=== PATIENT | female | born 1955 | race Caucasian/White ===

== ENCOUNTER 2017-04-15 10:26 | Emergency (ER) ==
[2017-04-15 10:32] VITALS: BP 167/91; TEMP 97.5; BMI 28.5
--- NOTE | 2017-04-15 10:48 | ED.PDOC ---
General ED Provider: Dr. ALEX MEDINA Chief Complaint: Foot Pain/Injury Stated Complaint: Stepped on a piece of broken glass approximately an hour ago. Pulled it out but thinks a piece remains in it. tried to dig it out with tweezers without success. Painful if she walks on it but otherwise pain- free Time Seen by Physician: 10:44 Mode of Arrival: Walk-In Information Source: Patient Exam Limitations: Physical impairment Primary Care Provider: JUDY MACK Nursing and Triage Documentation Reviewed and Agree: Yes Skin Complaint Exam - Skin/Soft Tissue Complaint/Exam Onset/Duration: 1 hour Symptoms Are: Still present Timing: Constant Initial Severity: Mild Current Severity: Mild Location: sole of foot proximal to big toe MTP joint Character: Reports: Painful (with weight-bearing on the site) Aggravating: Reports: Touch Alleviating: Reports: None Associated Signs and Symptoms: Reports: Tenderness Related Surgical History: Reports: None Recent Exposure to Others w/Similar Symptoms: No Skin Findings: Present: Other (puncture site palpable with questionable FB palpable under skin) Differential Diagnoses: Foreign Body, Other (puncture wound) Review of Systems - Review Of Systems Constitutional: Reports: No symptoms Musculoskeletal: Reports: No symptoms Skin: Reports: Other (tender puncture wound on sole of left foot with questionably palpable foreign body underneath skin) Neurological: Reports: No symptoms All Other Systems: Reviewed and Negative Past Medical History - Past Medical History Previously Healthy: Yes Endocrine: Reports: None Cardiovascular: Reports: None Respiratory: Reports: None Hematological: Reports: None Gastrointestinal: Reports: None Genitourinary: Reports: None Neuro/Psych: Reports: None Musculoskeletal: Reports: None Cancer: Reports: None Last Menstrual Period: 07/16/2001 - Surgical History General Surgical History: Reports: None - Family History Family History: Reports: Unknown - Social History Smoking Status: Never smoker Hx Substance Use: No Alcohol Screening: None Lives: With family - Immunizations Tetanus Shot up to Date: No (unknown) Influenza Vaccine within 12 Months: No Pneumococcal Vaccine up to Date: No Physical Exam - Physical Exam Appearance: Well-appearing, No pain distress, Well-nourished Musculoskeletal: Normal strength, ROM intact, No edema, No calf tenderness Skin: Warm (tender palpable puncture wound on sole of left foot proximal to first MTP joint. No neueo/vasc compromise. No muscle or tendon involvement.), Dry, Normal color Neurological: Sensation intact, Motor intact, Reflexes intact, Cranial nerves intact, Alert, Oriented Psychiatric: Affect appropriate, Mood appropriate Interpretation - Radiology Interpretation Radiology Interpretation By: ED Physician Radiology Results: Negative Exam Interpreted: Other Xray Comments: left foot soft tissue x-ray: no FB seen Critical Care Note - Critical Care Note Total Time (mins): 0 Course - Course Orders, Labs, Meds: Orders Category Date Time Status Diphth,Pertuss(Acell),Tet Vac [Boostrix] MEDS 04/15/17 10:52 Once 0.5 ml IM .ONCE ONE FOOT, LEFT 3 VIEWS Stat RADS 04/15/17 10:48 Ordered Medications Discontinued Medications Generic Name Dose Route Start Last Admin Trade Name Freq PRN Reason Stop Dose Admin Diphtheria/Pertussis/Tetanus Vacc 0.5 ml 04/15/17 10:52 Boostrix IM 04/15/17 10:53 .ONCE ONE Vital Signs: Temp Pulse Resp BP Pulse Ox 04/15/17 10:26 97.5 F L 56 L 16 167/91 H 98 Departure - Departure Time of Disposition: 11:05 Disposition: HOME SELF-CARE Discharge Problem: Puncture wound of left foot Instructions: Puncture Wound (ED) Condition: Good Pt referred to PMD for follow-up: No (if no better in 3 days, see doctor) Allergies/Adverse Reactions: Allergies meperidine [From Demerol] Adverse Reaction (Verified 04/15/17 10:35) morphine Adverse Reaction (Verified 04/15/17 10:35) promethazine [From Phenergan] Adverse Reaction (Verified 04/15/17 10:35) Home Medications: Ambulatory Orders Aspirin 81 mg PO DAILY 04/15/17 Cephalexin [Keflex] 500 mg PO BID #10 capsule 04/15/17 Multivitamin [Multi-Vitamin Daily] 1 tab PO DAILY 04/15/17 [place]-3 Fatty Acids/Fish Oil [Fish Oil 1,000 mg Capsule] 1,000 mg PO DAILY 04/15 Disposition Discussed With: Patient, Family
[2017-04-15] MEDS ORDERED: BOOSTRIX IM ONE (10:52)
--- NOTE | 2017-04-15 12:17 | DI ---
EXAM: Left foot, three views HISTORY: Trauma COMPARISON: None. FINDINGS: The alignment is normal. Joint spaces appear normal. No fracture is identified. Mild so ft tissue swelling or prominence of plantar soft tissues. Large calcaneal spur is seen. IMPRESSION: No fracture or dislocation is identified. There is a tiny 2 mm opacity seen in the distal plantar soft tissues on lateral image that may repres ent artifact versus small foreign body.
== END 2017-04-15 11:16 | disposition home or self-care (01) ==
LOC: ED 10:26
DX: S91.332A Puncture wound without foreign body, left foot, initial encounter (principal); W25.XXXA Contact with sharp glass, initial encounter
CPT/HCPCS: 90471; 90715; 99282

== ENCOUNTER 2017-05-30 08:15 | Outpatient (RCR) ==
--- NOTE | 2017-05-16 09:54 | RS.OPPTDN ---
Subjective Date of Note: 05/16/17 Visit #: 8 Date of Evaluation: 04/18/17 Payer Source: Insurance Treatment Diagnosis: back pain, radiculopathy right LE, right foot pain Current Subjective/complaints:: Patient says her back pain/hips and foot pain remain unchanged since yesterday. She says that back pain is chronic, but foot pain is an annoying 3/10 pain that is at the heel and lateral portion of the foot. She says that first few steps are very difficult, then after she is up on it a few mins, her pain subsides. However, if she walks more than 1 mile, pain returns. Pain Assessment - Pain Description Pain Location: low back and right leg, R heel and lateral arch Current Pain Intensity: mild in right hip and right foot - Treatment Modality: Ultrasound Parameters/Method Applied: continuous @ 1.5 w/cm2 x 12 mins to the R heel and lateral arch into just distal to the lateral malleoli. Patient Position: Supine - Heat/Cryotherapy Treatment: Hot Pack (10 mins to the foot, also to the low back and hips in supine while heat on foot and u/s ) Interventions - Exercise/Activities/Manual Therapy Exercises/Activities: [id number] Passive stretching of the right gastroc, soleus, and get toe flexors. Isometric right ankle df, multiple reps. Assisted stretching of the right HS, piriformis, figure 4, and ITB stretch. Isometric hip add and isometric hip flexion, lower trunk rotation stretch x 10. Bridging x 10. Ankle isometrics all dir 2x10. Manual Therapy: NA HOME EXERCISE PROGRAM: HS stretch and piriformis stretch, and plantar fascia stretch. Side-lying ITB stretch. Bridging. Isometric right ankle df. - Charges Total Direct Minutes: 34 Total Treatment Time: 49 Procedures billed for this date of service:: hp, u/s, ex Assessment: Patient experiencing mild pain that is intermittent to the R heel and lateral aspect of the foot as well as history of chronic pain to the low back and hips. She is active with [employer] locally and aerobics to improve her pain. Improved flexibility is noted however with HS and R heel cords. Patient Education: Body/Joint mechanics, Home Exercise Program Patient demonstrates compliance with HEP?: Yes Short Term Goals Goal #1: Right SLR to 50 degrees. Goal to be met by: 05/03/17 Progress towards Goal:: Progressing Goal #2: Right lateral thigh symptoms localized. Goal to be met by: 05/03/17 Progress towards Goal:: Progressing Goal #3: Pt independent in HEP. Goal to be met by: 05/03/17 Progress towards Goal:: Met Rug Inspector Goals Goal #1: Pt knows HEP and to continue ex's to maintain functional level at D/C. Goal to be met by: 06/08/17 Progress towards goal: Progressing Goal #2: Score on Oswestry LBP scale improved to 18. Goal to be met by: 06/08/17 Goal #3: Pt to tolerate prolonged standingwalking without right thigh or foot pain. Goal to be met by: 06/08/17 Progress towards goal: Progressing Goal #4: Pt to ambulate without gait deviation on the right LE. Goal to be met by: 06/08/17 Progress towards goal: Progressing Plan PLAN OF CARE EXPIRES ON:: 06/08/17 ORDER # VISITS AND/OR THROUGH DATE: 06/08/17 PLAN: Progress Exercises
--- NOTE | 2017-05-18 10:48 | RS.OPPTDN ---
Subjective Date of Note: 05/18/17 Visit #: 9 Date of Evaluation: 04/18/17 Payer Source: Insurance Treatment Diagnosis: back pain, radiculopathy right LE, right foot pain Current Subjective/complaints:: Patient says that applying u/s to the outside of her ankle helped. She says she felt she could WB and walk better. Pain Assessment - Pain Description Pain Location: low back and right leg, R heel and lateral arch Current Pain Intensity: mild in right hip and right foot - Treatment Modality: Ultrasound Parameters/Method Applied: continuous @ 1.5 w/cm2 x 12 mins to the R heel and lateral arch into the lateral malleoli Patient Position: Supine - Heat/Cryotherapy Treatment: Hot Pack (low back and hips and then to the R lateral ankle x 20 mins ) Interventions - Exercise/Activities/Manual Therapy Exercises/Activities: [id number] Passive stretching of the right gastroc, soleus, and get toe flexors. Isometric right ankle df, multiple reps. Assisted stretching of the right HS, piriformis, figure 4. Isometric hip add and isometric hip flexion, lower trunk rotation stretch x 10. Bridging x 10. Ankle isometrics all dir 2x10. Manual Therapy: NA HOME EXERCISE PROGRAM: HS stretch and piriformis stretch, and plantar fascia stretch. Side-lying ITB stretch. Bridging. Isometric right ankle df. - Charges Total Direct Minutes: 34 Total Treatment Time: 54 Procedures billed for this date of service:: hp, u/s, ex Assessment: Patient experienced less pain to the R foot particularly to the lateral aspect after last u/s. She manages chronic LBP with heat and stretches at home, but foot pain appears to be C/c. Today, she vocalizes reduced pain to the R foot. Patient Education: Body/Joint mechanics, Home Exercise Program Patient demonstrates compliance with HEP?: Yes Short Term Goals Goal #1: Right SLR to 50 degrees. Goal to be met by: 05/03/17 Progress towards Goal:: Progressing Goal #2: Right lateral thigh symptoms localized. Goal to be met by: 05/03/17 Progress towards Goal:: Progressing Goal #3: Pt independent in HEP. Goal to be met by: 05/03/17 Progress towards Goal:: Met Personal Care Service Provider Goals Goal #1: Pt knows HEP and to continue ex's to maintain functional level at D/C. Goal to be met by: 06/08/17 Progress towards goal: Progressing Goal #2: Score on Oswestry LBP scale improved to 18. Goal to be met by: 06/08/17 Goal #3: Pt to tolerate prolonged standingwalking without right thigh or foot pain. Goal to be met by: 06/08/17 Progress towards goal: Progressing Goal #4: Pt to ambulate without gait deviation on the right LE. Goal to be met by: 06/08/17 Progress towards goal: Progressing Plan PLAN OF CARE EXPIRES ON:: 06/08/17 ORDER # VISITS AND/OR THROUGH DATE: 06/08/17 PLAN: Progress Exercises
--- NOTE | 2017-05-22 10:50 | RS.OPPTDN ---
Subjective Date of Note: 05/22/17 Visit #: 10 Date of Evaluation: 04/18/17 Payer Source: Insurance Treatment Diagnosis: back pain, radiculopathy right LE, right foot pain Current Subjective/complaints:: Patient reports right foot pain has improved. She reports a mild flair-up over the weekend when walking barefoot in her house. Pain Assessment - Pain Description Pain Location: low back and right leg, R heel and lateral arch Current Pain Intensity: mild in right hip and right foot - Treatment Modality: Ultrasound Parameters/Method Applied: [id number] at 1.5w/cm2 to the right foot plantar surface and along the lateral border of the foot. Patient Position: Supine - Heat/Cryotherapy Treatment: Hot Pack ([id number] to the lowabck and right foot prior to US and EX. Patient in supine. ) Interventions - Exercise/Activities/Manual Therapy Exercises/Activities: [id number] Passive stretching of the right gastroc, soleus, and get toe flexors. Assisted stretching of the right HS, piriformis, figure 4. Isometric hip add and isometric hip flexion, lower trunk rotation stretch. Green theraband for bialteral hip abduction. Total minutes of Exercise: 20mins Manual Therapy: NA HOME EXERCISE PROGRAM: HS stretch and piriformis stretch, and plantar fascia stretch. Side-lying ITB stretch. Bridging. Isometric right ankle df. - Charges Total Direct Minutes: 30mins Total Treatment Time: 50mins Procedures billed for this date of service:: HP, US, EX Assessment: Patient has progressed but may be reaching a plateau at this time. Patient Education: Body/Joint mechanics, Home Exercise Program Patient demonstrates compliance with HEP?: Yes Short Term Goals Goal #1: Right SLR to 50 degrees. Goal to be met by: 05/03/17 Progress towards Goal:: Met Goal #2: Right lateral thigh symptoms localized. Goal to be met by: 05/03/17 (80%) Progress towards Goal:: Progressing Goal #3: Pt independent in HEP. Goal to be met by: 05/03/17 Progress towards Goal:: Met Social Work Associate Goals Goal #1: Pt knows HEP and to continue ex's to maintain functional level at D/C. Goal to be met by: 06/08/17 Progress towards goal: Met Goal #2: Score on Oswestry LBP scale improved to 18. Goal to be met by: 06/08/17 Goal #3: Pt to tolerate prolonged standingwalking without right thigh or foot pain. Goal to be met by: 06/08/17 Progress towards goal: Progressing Goal #4: Pt to ambulate without gait deviation on the right LE. Goal to be met by: 06/08/17 Progress towards goal: Met Plan PLAN OF CARE EXPIRES ON:: 06/08/17 ORDER # VISITS AND/OR THROUGH DATE: 06/08/17 PLAN: Continue treatment this week to reduce pain and radicular symptoms. Will reassess progress and discuss discharge plans.
--- NOTE | 2017-05-23 10:58 | RS.OPPTDN ---
Subjective Date of Note: 05/23/17 Visit #: 11 Date of Evaluation: 04/18/17 Payer Source: Insurance Treatment Diagnosis: back pain, radiculopathy right LE, right foot pain Current Subjective/complaints:: Patient says her foot and back had been aggravated due to having her grandchildren over. She says she does feel improvement with ankle and foot pain as she had u/s to the outside of the ankle. Pain Assessment - Pain Description Pain Location: low back and right leg, R heel and lateral arch Current Pain Intensity: mild in right hip and right foot - Treatment Modality: Ultrasound Parameters/Method Applied: continuous @ 1.5 w/cm2 x 12 mins to the R lateral malleoli region and heel/lateral arch. Patient Position: Supine - Heat/Cryotherapy Treatment: Hot Pack (mid to low back and hips and to the R foot (laterally/heel ) x 20 mins supine) Interventions - Exercise/Activities/Manual Therapy Exercises/Activities: [id number] Passive stretching of the right gastroc, soleus, and get toe flexors. Manual isometrics for the R foot all dir 2x10. Green tband for all foot dir 2x10. Assisted stretching of the right HS, piriformis, figure 4. Isometric hip add and isometric hip flexion, lower trunk rotation stretch. Manual Therapy: NA HOME EXERCISE PROGRAM: HS stretch and piriformis stretch, and plantar fascia stretch. Side-lying ITB stretch. Bridging. Isometric right ankle df. - Charges Total Direct Minutes: 32 Total Treatment Time: 52 Procedures billed for this date of service:: hp, u/s, ex Assessment: Patient recently had elevated pain to the back and foot related to keeping her grandkids. Since then, pain has subsided and she remains active with [employer] program and HEP. She is able to logan progression of foot and back exercises. Patient Education: Home Exercise Program Patient demonstrates compliance with HEP?: Yes Short Term Goals Goal #1: Right SLR to 50 degrees. Goal to be met by: 05/03/17 Progress towards Goal:: Met Goal #2: Right lateral thigh symptoms localized. Goal to be met by: 05/03/17 (80%) Progress towards Goal:: Progressing Goal #3: Pt independent in HEP. Goal to be met by: 05/03/17 Progress towards Goal:: Met Midlevel Provider Goals Goal #1: Pt knows HEP and to continue ex's to maintain functional level at D/C. Goal to be met by: 06/08/17 Progress towards goal: Met Goal #2: Score on Oswestry LBP scale improved to 18. Goal to be met by: 06/08/17 Goal #3: Pt to tolerate prolonged standingwalking without right thigh or foot pain. Goal to be met by: 06/08/17 Progress towards goal: Progressing Goal #4: Pt to ambulate without gait deviation on the right LE. Goal to be met by: 06/08/17 Progress towards goal: Met Plan PLAN OF CARE EXPIRES ON:: 06/08/17 ORDER # VISITS AND/OR THROUGH DATE: 06/08/17 PLAN: Progress exercises to strengthen the R foot and improve trunk stabiity.
--- NOTE | 2017-05-30 11:29 | RS.OPPTDN ---
Subjective Date of Note: 05/30/17 Visit #: 12 Date of Evaluation: 04/18/17 Payer Source: Insurance Treatment Diagnosis: back pain, radiculopathy right LE, right foot pain Current Subjective/complaints:: Patient says she understands she will have to manage her chronic LBP/R foot pain. She reports foot pain is not present except with initial standing, first few steps, then walking more than one mile. She is managing foot pain using ice often rolling over water bottle. Back pain is better as well, but always maintains mild soreness with rest/activity. Pain Assessment - Pain Description Pain Location: low back and right leg, R heel and lateral arch Current Pain Intensity: mild in right hip and right foot - Treatment Modality: Ultrasound Parameters/Method Applied: continuous @ 1.5 w/cm2 x 10 mins to the R heel and R lateral forefoot Patient Position: Supine - Heat/Cryotherapy Treatment: Hot Pack (mid to low back/hips and over the top of the R foot/heel x 20 mins supine) Interventions - Exercise/Activities/Manual Therapy Exercises/Activities: [id number] Passive stretching of the right gastroc, soleus, and get toe flexors. Manual isometrics for the R foot all dir 2x10. Green tband for all foot dir 2x10. Assisted stretching of the right HS, piriformis, figure 4. Isometric hip add and isometric hip flexion, lower trunk rotation stretch. SLR, bridging x 10. Manual Therapy: NA HOME EXERCISE PROGRAM: HS stretch and piriformis stretch, and plantar fascia stretch. Side-lying ITB stretch. Bridging. Isometric right ankle df. - Objective Findings Observations,measurements,etc.: Oswestry Scale reveals score of 16 or 32% impairment compared to eval of 21 or 42% impairment. 5 mins - Charges Total Direct Minutes: 35 Total Treatment Time: 55 Procedures billed for this date of service:: hp, u/s, ex Assessment: Patient has demo improvement with Oswestry Scale and verbal reports. She is able to demo norm HS length on the R compared to the L. She realizes back pain is chronic and is able to maintain progress made in PT through heat/ice/HEP and body mechanics as well as being active with aerobic classes. Foot pain has also improved and is mainly present with initial standing and 1-2 steps then able to walk ~1 mile before mild pain is present. Patient Education: Body/Joint mechanics, Home Exercise Program Patient demonstrates compliance with HEP?: Yes Short Term Goals Goal #1: Right SLR to 50 degrees. Goal to be met by: 05/03/17 Progress towards Goal:: Met Goal #2: Right lateral thigh symptoms localized. Goal to be met by: 05/03/17 Progress towards Goal:: Met Goal #3: Pt independent in HEP. Goal to be met by: 05/03/17 Progress towards Goal:: Met Educational Aide Goals Goal #1: Pt knows HEP and to continue ex's to maintain functional level at D/C. Goal to be met by: 06/08/17 Progress towards goal: Met Goal #2: Score on Oswestry LBP scale improved to 18. Goal to be met by: 06/08/17 Progress towards goal: Met Comments: 16 Goal #3: Pt to tolerate prolonged standingwalking without right thigh or foot pain. Goal to be met by: 06/08/17 Progress towards goal: Partially Met Comments: Patient able to walk ~1 mile now Goal #4: Pt to ambulate without gait deviation on the right LE. Goal to be met by: 06/08/17 Progress towards goal: Met Plan PLAN OF CARE EXPIRES ON:: 06/08/17 ORDER # VISITS AND/OR THROUGH DATE: 06/08/17 PLAN: Patient has attended original order and has made great progress. Plan to discharge.
--- NOTE | 2017-06-15 08:52 | RS.QUICKDC ---
Discharge from PT Date of Discharge: 06/15/17 Number of Visits: 12 Reason for Discharge: Patient attended treatments for her low back and R foot. She received moist heat, u/s to the foot, and therex for foot and low back including flexibility stretches, strengthening with tbands, and trunk stability. She has reported improvement with general pain level and can now logan walking up to one mile before pain is present and causes her to stop. She understands her chronic back pain and how to manage it during flare ups. See daily notes for specific treatment.
== END 2017-06-14 ==
PROVIDERS: ATTEND Family Medicine
DX: M54.9 Dorsalgia, unspecified (principal)